=== PATIENT | female | born 1955 | race Caucasian/White ===

== ENCOUNTER → 2018-08-13 08:11 | Outpatient (CLI) | payer OTHER, SELFPAY ==
--- NOTE | 2018-08-13 | DI.NM.S_ITS ---
PROCEDURE: NM BONE 3 PHASE RADIOPHARMACEUTICAL: 19.4 mCi Tc-99m MDP IV. INDICATIONS: LEFT WRIST SPRAIN TECHNIQUE: Multiple bone scintigrams were obtained after intravenous injection of Tc-99m MDP, including flow, blood pool, and delayed images centered to the region of interest. COMPARISON: [facility], , HAND 3V LEFT, 12/06/2015, 12:44. FINDINGS: Bilaterally symmetric uptake about the wrist is likely degenerative and primarily seen on the delayed phase only. There is also pauci-articular uptake involving the thumb MCP and interphalangeal joint, also bilaterally symmetric and probably reflects arthritic change. No diffuse periarticular tracer uptake seen in the interphalangeal joints of fingers to suggest complex regional pain syndrome. IMPRESSION: No specific scintigraphic evidence for left wrist complex regional pain syndrome. Dictated by: Peter Browning M.D. on 08/13/2018 at 15:01 Approved by: Peter Browning M.D. on 08/13/2018 at 15:07
== END ==
PROVIDERS: Visit Provider Physical Medicine & Rehabilitation
DX: S63.502A Unspecified sprain of left wrist, initial encounter (principal)
CPT/HCPCS: 78315; A9503